=== PATIENT | male | born 1960 | race Caucasian/White ===

== ENCOUNTER → 2024-10-04 14:56 | Outpatient (BNVA) | payer MEDICARE, SELFPAY | PROVIDERS: PCP Nurse Practitioner Family; Visit Provider Nurse Practitioner Family | DX: R68.89 Other general symptoms and signs (principal); Z20.822 Contact with and (suspected) exposure to COVID-19 | CPT/HCPCS: 87400; 87426 ==

== ENCOUNTER 2024-10-29 14:04 | Outpatient (CLI) | payer MEDICARE, SELFPAY | END 2024-10-29 14:05 | disposition home or self-care (01) | LOC: SLEEP 14:08 | PROVIDERS: PCP Family Medicine; Visit Provider Family Medicine | DX: G47.33 Obstructive sleep apnea (adult) (pediatric) (principal); G47.36 Sleep related hypoventilation in conditions classified elsewhere | CPT/HCPCS: G0399 ==

== ENCOUNTER 2024-12-24 19:50 | Emergency (ER) | payer MEDICARE, SELFPAY ==
[2024-12-24 20:35] VITALS: BP 143/64; PULSE 65; RESP 17; TEMP 36.8; O2SAT 98; BMI 26.2
--- NOTE | 2024-12-24 20:39 | ECG_ITS ---
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
[2024-12-24 21:10] LABS: Basophils % 0.4 %; Eosinophils # 0.3 10^3/uL (0.0-0.8); Eosinophils % 3.9 %; Hematocrit 29.8 % (37-53); Lymphocytes # 0.9 10^3/uL (0.8-4.8); Lymphocytes % 12.8 %; Mean Corpuscular HGB Conc 30.2 g/dL (30-55); Mean Corpuscular Volume 89.5 fl (82-101); Mean Platelet Volume 10.7 fL (7.4-10.4); Monocytes # 0.7 10^3/uL (0.2-0.9); Monocytes % 9.4 %; Neutrophils % 73.2 %; Nucleated Red Blood Cells % 0 %; Platelet Count 186 10^3/cmm (157-399); Red Blood Count 3.33 10^6/uL (3.85-5.65); Red Cell Distribution Width 14.3 % (12.1-15.1); White Blood Count 7.11 10^3/uL (3.29-11.43)
[2024-12-24 21:38] LABS: Alanine Aminotransferase 14 U/L (0-41); Albumin Level 3.7 g/dL (3.5-5.2); Alkaline Phosphatase 123 U/L (40-130); Anion Gap 19.6 (5-19); Aspartate Amino Transferase 15 U/L (0-40); Blood Urea Nitrogen 51 mg/dL (8-23); Calcium 8.7 mg/dL (8.5-10.5); Carbon Dioxide 23 mmol/L (22-29); Chloride 100 mmol/L (98-107); Creatinine Clr Calc Pharmacy 22.5915; Globulin 2.9 g/dL (1.3-4.6); Glomerular Filtration Rate 14.3 mL/min (90-130); Glucose 97 mg/dL (65-115); NT Pro B Type Natriuretic Pept 5929 pg/mL (0-125); Osmolality Calculated 300 mOsm/kg (285-295); Potassium 4.6 mmol/L (3.5-5.1); Sodium 138 mmol/L (136-145); Total Bilirubin 0.2 mg/dL (0.15-1.2); Total Protein 6.6 g/dL (6.6-8.7)
--- NOTE | 2024-12-24 23:25 | CTR_ITS ---
PROCEDURE INFORMATION: Exam: CT Chest Without Contrast; Diagnostic Exam date and time: 12/24/2024 11:53 PM Age: 64 years old Clinical indication: Abdominal tenderness and bloating; Shortness of breath; Additional info: Abdominal swelling, shortness of breath TECHNIQUE: Imaging protocol: Diagnostic computed tomography of the chest without contrast. Radiation optimization: All CT scans at this facility use at least one of these dose optimization techniques: automated exposure control; mA and/or kV adjustment per patient size (includes targeted exams where dose is matched to clinical indication); or iterative reconstruction. COMPARISON: No relevant prior studies available. RADIATION DOSE METRICS: Total DLP (mGy-cm): 0.01 FINDINGS: Thyroid: The visualized thyroid gland is unremarkable. Trachea: The central airways are patent. Lungs: Scattered calcified granulomas in both lungs. No focal consolidation. Background of mild centrilobular emphysema. Pleural spaces: No significant pleural effusion. No pneumothorax. Heart: The heart is enlarged. No pericardial effusion. Coronary arteries: Severe coronary artery calcifications and/or stents. Lymph nodes: Nonspecific scattered prominent mediastinal lymph nodes measuring up to 1.0 cm in short axis anterior to the right mainstem bronchus, possibly reactive. Vasculature: The aorta demonstrates mild atherosclerotic calcification. The aorta is normal in caliber. No aneurysm. Bones/joints: The spine demonstrates moderate degenerative changes at multiple levels. There are diffuse flowing bridging osteophytes, consistent with diffuse idiopathic skeletal hyperostosis (DISH). Soft tissues: Soft tissues are unremarkable as visualized. COMMENTS: The presence of pulmonary emphysema on CT is an independent risk factor for lung cancer. In the absence of a history or active diagnosis of lung cancer, it is recommended that this patient with emphysema be evaluated for enrollment in a low dose CT lung cancer screening program. PROCEDURE INFORMATION: Exam: CT Abdomen And Pelvis Without Contrast Exam date and time: 12/24/2024 11:53 PM Age: 64 years old Clinical indication: Abdominal tenderness and bloating; Shortness of breath; Additional info: Abdominal swelling, shortness of breath TECHNIQUE: Imaging protocol: Computed tomography of the abdomen and pelvis without contrast. Radiation optimization: All CT scans at this facility use at least one of these dose optimization techniques: automated exposure control; mA and/or kV adjustment per patient size (includes targeted exams where dose is matched to clinical indication); or iterative reconstruction. COMPARISON: No relevant prior studies available. RADIATION DOSE METRICS: Total DLP (mGy-cm): 982.47 FINDINGS: Liver: The liver is unremarkable. Gallbladder and biliary ducts: The gallbladder is unremarkable. No biliary dilation. Pancreas: The pancreas is unremarkable. Spleen: The spleen is unremarkable. Adrenal glands: The adrenal glands are unremarkable. Kidneys and ureters: Punctate bilateral nonobstructive renal stones. No hydronephrosis. Subcentimeter simple and hemorrhagic cysts within the left kidney. Stomach and bowel: Colonic diverticulosis without evidence of diverticulitis. Moderate colonic stool burden. Appendix: A normal appendix is identified. Intraperitoneal space: No significant peritoneal free fluid. No free peritoneal air. Vasculature: The vasculature demonstrates diffuse moderate atherosclerotic calcification. No aneurysm. Lymph nodes: No enlarged lymph nodes by size criteria. Urinary bladder: The bladder is unremarkable. Reproductive: Visualized portions of the male reproductive tract are unremarkable, though routine CT is limited in this regard. Bones/joints: The lumbar spine demonstrates marked degenerative changes at multiple levels. Soft tissues: Soft tissues are unremarkable as visualized. CT/[place] [id number] IMPRESSION: 1. No acute findings. 2. Background of mild centrilobular emphysema. 3. Severe coronary artery calcifications and/or stents. IMPRESSION: 1. No acute findings. 2. Bilateral punctate nephrolithiasis. No hydronephrosis. 3. Colonic diverticulosis without evidence of diverticulitis. COMMENTS: Consistent with the [employer]'s Incidental Findings Committee white paper (J Am Almita Radiol 2018): Any incidental renal lesion less than 1 cm or classified as too small to characterize, or any incidental cystic renal lesion characterized as simple-appearing, is likely benign. No follow-up imaging is recommended for these lesions per consensus recommendations based on imaging criteria.
[2024-12-25] VITALS: RESP 18
--- NOTE | 2024-12-25 00:16 | W.ED.GENADLT ---
HPI - General Adult General: Chief complaint: General Medical Stated complaint: dr raymundo kidney failure CHF holding too much fluid Time Seen by Provider: 12/25/24 00:12 History of Present Illness: 64-year-old male with a history of chronic kidney disease who presents to the emergency room at the urging of his kidney doctor. He says he felt like he is retaining fluid. He feels like this is in his abdomen. However his abdomen is flat and soft. No pain. No nausea or vomiting. No lower extremity swelling. Related Data Home Medications ?Medication ?Instructions ?Recorded ?Confirmed amlodipine 10 mg tablet 10 mg PO DAILY 10/04/24 10/04/24 aspirin 81 mg tablet,delayed 81 mg PO DAILY 10/04/24 10/04/24 release (Adult Aspirin Regimen) atorvastatin 40 mg tablet 40 mg PO DAILY 10/04/24 10/04/24 bumetanide 2 mg tablet 2 mg PO BID 10/04/24 10/04/24 clonidine HCl 0.1 mg tablet 0.05 mg PO BID 10/04/24 10/04/24 clopidogrel 75 mg tablet 75 mg PO DAILY 10/04/24 10/04/24 dextromethorphan-guaifenesin 30 1 tab PO DAILY 10/04/24 10/04/24 mg-600 mg tablet extended [id number] hr ferrous sulfate 325 mg (65 mg 325 mg PO DAILY 10/04/24 10/04/24 iron) tablet hydralazine 100 mg tablet 100 mg PO BID 10/04/24 10/04/24 isosorbide mononitrate 60 mg 60 mg PO DAILY 10/04/24 10/04/24 tablet,extended release 24 hr nitroglycerin 0.4 mg sublingual 0.4 mg sublingual Q5M PRN 10/04/24 10/04/24 tablet pantoprazole 40 mg tablet,delayed 40 mg PO DAILY 10/04/24 10/04/24 release Previous Rx's ?Medication ?Instructions ?Recorded azithromycin 250 mg tablet See Rx Instructions PO .COMPLEX #6 10/04/24 tabs benzonatate 100 mg capsule 100 mg PO TID PRN cough #90 caps 10/04/24 prednisone 10 mg tablet 30 mg (3 x 10 mg) PO DAILY 3 days 10/04/24 #9 tabs Allergies Allergy/AdvReac Type Severity Reaction Status Date / Time Sulfa (Sulfonamide Allergy Intermediate Unknown Verified 10/04/24 14:49 Antibiotics) Review of Systems Narrative: Constitutional symptoms: Negative except as documented in HPI. Skin symptoms: Negative except as documented in HPI. Eye symptoms: Negative except as documented in HPI. ENMT symptoms: Negative except as documented in HPI. Respiratory symptoms: Negative except as documented in HPI. Cardiovascular symptoms: Negative except as documented in HPI. Gastrointestinal symptoms: Negative except as documented in HPI. Genitourinary symptoms: Negative except as documented in HPI. Musculoskeletal symptoms: Negative except as documented in HPI. Neurologic symptoms: Negative except as documented in HPI. Psychiatric symptoms: Negative except as documented in HPI. Endocrine symptoms: Negative except as documented in HPI. PFS ED PFSH: Social History Smoking and tobacco/nicotine status: current every day tobacco/nicotine user Physical Exam Narrative: EXAM NARRATIVE: General: Alert, no acute distress. Skin: Warm, dry. Head: Normocephalic, atraumatic. Neck: Supple, trachea midline. Eye: Extraocular movements are intact. Ears, nose, mouth and throat: mucosa moist. Cardiovascular: Regular, Normal peripheral perfusion. Respiratory: Lungs are clear to auscultation, respirations are non-labored, breath sounds are equal, Symmetrical chest wall expansion. Gastrointestinal: Soft, Nontender, Non distended Musculoskeletal: Normal ROM, no deformity. Neurological: Alert and oriented, No focal neurological deficit observed. Psychiatric: Cooperative, appropriate mood & affect. Course Vital Signs: Vital signs: Vital Signs Temperature 98.2 F 12/24/24 20:35 Pulse Rate 65 12/25/24 00:38 Respiratory Rate 18 12/25/24 00:38 Blood Pressure 156/69 12/25/24 00:38 Pulse Oximetry 97 12/25/24 00:38 Oxygen Delivery Me thod Room Air 12/24/24 20:35 MDM - General Adult Medical Decision Making Lab Review: Laboratory results were reviewed and interpreted by myself the emergency room physician. No leukocytosis. Hemoglobin is 9 which would be expected in this patient with chronic kidney disease. His BUN and creatinine are 51 and 4.2 potassium of 4.6. I have no comparisons. I reviewed the patient's medical record. CT of the abdomen pelvis shows no acute findings. See documented findings below. This was reviewed and interpreted by myself the emergency room physician. I also reviewed the radiology report. Assessment and plan: Chronic kidney disease - Discharged home - Discussed plan with patient. Answered any questions. - Evaluation and treatment of this problem were appropriate in the emergency setting. Lab Data 12/24/24 20:50 12/24/24 20:50 Radiology Impressions Chest/Abdomen/Pelvis CT 12/24/24 23:25 IMPRESSION: 1. No acute findings. 2. Background of mild centrilobular emphysema. 3. Severe coronary artery calcifications and/or stents. IMPRESSION: 1. No acute findings. 2. Bilateral punctate nephrolithiasis. No hydronephrosis. 3. Colonic diverticulosis without evidence of diverticulitis. COMMENTS: Consistent with the [employer]'s Incidental Findings Committee white paper (J Am Almita Radiol 2018): Any incidental renal lesion less than 1 cm or classified as too small to characterize, or any incidental cystic renal lesion characterized as simple-appearing, is likely benign. No follow-up imaging is recommended for these lesions per consensus recommendations based on imaging criteria. Laboratory Results WBC 7.11 10^3/uL (3.29-11.43) 12/24/24 20:50 RBC 3.33 10^6/uL (3.85-5.65) L 12/24/24 20:50 Hgb 9.00 g/dL (11.27-16.99) L 12/24/24 20:50 Hct 29.8 % (37-53) L 12/24/24 20:50 MCV 89.5 fl (82-101) 12/24/24 20:50 MCH 27.0 pg (27-33) 12/24/24 20:50 MCHC 30.2 g/dL (30-55) 12/24/24 20:50 RDW 14.3 % (12.1-15.1) 12/24/24 20:50 Plt Count 186 10^3/cmm (157-399) 12/24/24 20:50 MPV 10.7 fL (7.4-10.4) H 12/24/24 20:50 Neut % (Auto) 73.2 % 12/24/24 20:50 Lymph % (Auto) 12.8 % 12/24/24 20:50 [place] % (Auto) 9.4 % 12/24/24 20:50 Eos % (Auto) 3.9 % 12/24/24 20:50 Baso % (Auto) 0.4 % 12/24/24 20:50 Neut # (Auto) 5.20 10^3/uL (1.8-7.7) 12/24/24 20:50 Lymph # (Auto) 0.9 10^3/uL (0.8-4.8) 12/24/24 20:50 [place] # (Auto) 0.7 10^3/uL (0.2-0.9) 12/24/24 20:50 Eos # (Auto) 0.3 10^3/uL (0.0-0.8) 12/24/24 20:50 Baso # (Auto) 0.0 10^3/uL (0.0-0.1) 12/24/24 20:50 Nucleated RBC % (auto) 0 % 12/24/24 20:50 Nucleated RBCs # 0.0 /100WBC 12/24/24 20:50 Sodium 138 mmol/L (136-145) 12/24/24 20:50 Potassium 4.6 mmol/L (3.5-5.1) 12/24/24 20:50 Chloride 100 mmol/L (98-107) 12/24/24 20:50 Carbon Dioxide 23 mmol/L (22-29) 12/24/24 20:50 Anion Gap 19.6 (5-19) H 12/24/24 20:50 BUN 51 mg/dL (8-23) H 12/24/24 20:50 Creatinine 4.2 mg/dL (0.7-1.2) H 12/24/24 20:50 GFR Calculation 14.3 mL/min (90-130) L 12/24/24 20:50 Glucose 97 mg/dL (65-115) 12/24/24 20:50 Calculated Osmolality 300 mOsm/kg (285-295) H 12/24/24 20:50 Calcium 8.7 mg/dL (8.5-10.5) 12/24/24 20:50 Total Bilirubin 0.2 mg/dL (0.15-1.2) 12/24/24 20:50 AST 15 U/L (0-40) 12/24/24 20:50 ALT 14 U/L (0-41) 12/24/24 20:50 Alkaline Phosphatase 123 U/L (40-130) 12/24/24 20:50 NT-Pro-B Natriuret Pep 5929 pg/mL (0-125) H 12/24/24 20:50 Total Protein 6.6 g/dL (6.6-8.7) 12/24/24 20:50 Albumin 3.7 g/dL (3.5-5.2) 12/24/24 20:50 Globulin 2.9 g/dL (1.3-4.6) 12/24/24 20:50 All radiology interpretation(s) finalized by discharge Discharge Plan Discharge Patient Disposition: Home Clinical Impression: Chronic kidney disease, stage 4 (severe) Condition: Stable Prescriptions: No Action amlodipine 10 mg tablet 10 mg PO DAILY aspirin [Adult Aspirin Regimen] 81 mg tablet,delayed release (DR/EC) 81 mg PO DAILY atorvastatin 40 mg tablet 40 mg PO DAILY bumetanide 2 mg tablet 2 mg PO BID clonidine HCl 0.1 mg tablet 0.05 mg PO BID clopidogrel 75 mg tablet 75 mg PO DAILY dextromethorphan-guaifenesin 30-600 mg tablet extended release 12 hr 1 tab PO DAILY ferrous sulfate 325 mg (65 mg iron) tablet 325 mg PO DAILY hydralazine 100 mg tablet 100 mg PO BID isosorbide mononitrate 60 mg tablet extended release 24 hr 60 mg PO DAILY nitroglycerin 0.4 mg tablet, sublingual 0.4 mg sublingual Q5M PRN Rx Instructions: do not exceed 3 doses per episode pantoprazole 40 mg tablet,delayed release (DR/EC) 40 mg PO DAILY azithromycin 250 mg tablet See Rx Instructions PO .COMPLEX Qty: 6 0RF Rx Instructions: For 250 mg dose pack: take 500 mg today (day 1), then 250 mg for 4 days (days 2-5) PO prednisone 10 mg tablet 30 mg PO DAILY 3 Days Qty: 9 0RF benzonatate 100 mg capsule 100 mg PO TID PRN (Reason: cough) Qty: 90 0RF Discharge Orders: Discharge ED (Routine); Ordered 12/25/24 Ordered By: Hoda Hernandez Referrals: Bobby Bradley, [Primary Care Provider] - Discharge Diet: Advance as tolerated Discharge Activity: Increase activity as tolerated Patient Instructions: Chronic Kidney Disease (ED), Opioid Safety, Pain Management Activity Restrictions/Additional Instructions: Thank you for choosing [facility] for your healthcare needs today. Please realize this is an emergency room and that we are providing you with a medical screening exam and this may not be complete and all inclusive of all the testing and or work up that you may need to determine your ailment or severity of your illness. You have been screened and evaluated and felt safe for discharge. Health conditions do change or evolve sometimes and as such it is important that you follow up with your Primary Doctor to be re checked, 3-5 days is a general good time frame for follow up. You are always welcome to return to the ED for re assessment if your symptoms are worsening or you have new concerns Print Language: Indonesian Coding Level of Care Code ED Dough Mixing Machine Operator for Carolina Rea
[2024-12-25 00:38] VITALS: BP 156/69; PULSE 65; RESP 18; O2SAT 97
== END 2024-12-25 00:39 | disposition home or self-care (01) ==
PROVIDERS: Emergency Medicine; Emergency Provider Emergency Medicine; PCP Family Medicine
DX: N18.4 Chronic kidney disease, stage 4 (severe) (principal); Z79.82 Long term (current) use of aspirin; Z72.0 Tobacco use
CPT/HCPCS: 36415; 71250; 74176; 80053; 83880; 85025; 93005; 99284

== ENCOUNTER 2025-01-05 10:00 | Oncology outpatient (recurring) (ONCR) | payer MEDICARE, OTHER, SELFPAY ==
[2024-12-15] MEDS: DARBEPOETIN SUBCUT (09:43)
[2024-12-15 09:55] VITALS: BP 150/60; PULSE 59; RESP 16; TEMP 36.6; O2SAT 98
[2025-01-05 10:35] LABS: Basophils % 0.2 %; Eosinophils # 0.1 10^3/uL (0.0-0.8); Eosinophils % 3.4 %; Hematocrit 30.7 % (37-53); Lymphocytes # 0.9 10^3/uL (0.8-4.8); Lymphocytes % 20.6 %; Mean Corpuscular HGB Conc 31.9 g/dL (30-55); Mean Corpuscular Hemoglobin 27.7 pg (27-33); Mean Corpuscular Volume 86.7 fl (82-101); Monocytes # 0.4 10^3/uL (0.2-0.9); Neutrophils # 2.75 10^3/uL (1.8-7.7); Neutrophils % 66.8 %; Nucleated Red Blood Cells % 0 %; Platelet Count 162 10^3/cmm (157-399); Red Blood Count 3.54 10^6/uL (3.85-5.65); Red Cell Distribution Width 13.7 % (12.1-15.1); White Blood Count 4.12 10^3/uL (3.29-11.43)
== END 2025-01-09 23:59 | disposition home or self-care (01) ==
PROVIDERS: PCP Family Medicine; Visit Provider Nurse Practitioner Family
DX: Z53.9 Procedure and treatment not carried out, unspecified reason; N18.4 Chronic kidney disease, stage 4 (severe); D50.9 Iron deficiency anemia, unspecified
CPT/HCPCS: 36415; 85025; 96372; J0881

== ENCOUNTER 2025-01-19 14:12 | Oncology outpatient (recurring) (ONCR) | payer MEDICARE, OTHER, SELFPAY ==
[2025-01-19] MEDS: DARBEPOETIN SUBCUT (14:56)
== END 2025-02-09 23:59 | disposition home or self-care (01) ==
PROVIDERS: PCP Family Medicine; Visit Provider Nurse Practitioner Family
DX: N18.4 Chronic kidney disease, stage 4 (severe) (principal); Z79.899 Other long term (current) drug therapy
CPT/HCPCS: 96372; J0881

== ENCOUNTER 2025-02-10 14:05 | Oncology outpatient (recurring) (ONCR) | payer MEDICARE, OTHER, SELFPAY ==
[2025-02-10 14:30] LABS: Basophils # 0.1 10^3/uL (0.0-0.1); Basophils % 0.8 %; Eosinophils # 0.3 10^3/uL (0.0-0.8); Eosinophils % 3.4 %; Hematocrit 35.2 % (37-53); Lymphocytes % 13.7 %; Mean Corpuscular HGB Conc 31.3 g/dL (30-55); Mean Corpuscular Hemoglobin 26.2 pg (27-33); Mean Corpuscular Volume 83.8 fl (82-101); Mean Platelet Volume 10.5 fL (7.4-10.4); Monocytes # 0.5 10^3/uL (0.2-0.9); Monocytes % 7.1 %; Neutrophils # 5.45 10^3/uL (1.8-7.7); Neutrophils % 74.7 %; Nucleated Red Blood Cells % 0 %; Platelet Count 212 10^3/cmm (157-399); Red Cell Distribution Width 13.9 % (12.1-15.1)
[2025-02-10 14:43] LABS: Alanine Aminotransferase 6 U/L (0-41); Alkaline Phosphatase 104 U/L (40-130); Anion Gap 17.3 (5-19); Aspartate Amino Transferase 15 U/L (0-40); Blood Urea Nitrogen 72 mg/dL (8-23); Calcium 8.8 mg/dL (8.5-10.5); Carbon Dioxide 22 mmol/L (22-29); Chloride 100 mmol/L (98-107); Globulin 2.7 g/dL (1.3-4.6); Glomerular Filtration Rate 15.6 mL/min (90-130); Glucose 107 mg/dL (65-115); Osmolality Calculated 302 mOsm/kg (285-295); Potassium 4.3 mmol/L (3.5-5.1); Sodium 135 mmol/L (136-145); Total Bilirubin 0.2 mg/dL (0.15-1.2); Total Protein 6.7 g/dL (6.6-8.7)
== END 2025-03-11 23:59 | disposition home or self-care (01) ==
LOC: ONCMED 14:06
PROVIDERS: PCP Family Medicine; Visit Provider Nurse Practitioner Family
DX: N18.4 Chronic kidney disease, stage 4 (severe) (principal)
CPT/HCPCS: 36415; 80053; 85025

== ENCOUNTER 2025-03-03 12:39 | Outpatient (CLI) | payer MEDICARE, OTHER, SELFPAY ==
[2025-03-03 13:51] LABS: Basophils % 0.3 %; Eosinophils # 0.3 10^3/uL (0.0-0.8); Eosinophils % 4.1 %; Hematocrit 31.1 % (37-53); Lymphocytes % 13.6 %; Mean Corpuscular HGB Conc 31.2 g/dL (30-55); Mean Corpuscular Hemoglobin 26.6 pg (27-33); Mean Corpuscular Volume 85.4 fl (82-101); Mean Platelet Volume 11.6 fL (7.4-10.4); Monocytes # 0.5 10^3/uL (0.2-0.9); Monocytes % 7.2 %; Neutrophils # 5.42 10^3/uL (1.8-7.7); Neutrophils % 74.5 %; Nucleated Red Blood Cells % 0 %; Platelet Count 164 10^3/cmm (157-399); Red Blood Count 3.64 10^6/uL (3.85-5.65); Red Cell Distribution Width 13.7 % (12.1-15.1); White Blood Count 7.27 10^3/uL (3.29-11.43)
== END 2025-03-03 12:40 | disposition home or self-care (01) ==
PROVIDERS: PCP Family Medicine; Visit Provider Nurse Practitioner Family
DX: D50.9 Iron deficiency anemia, unspecified (principal); D64.9 Anemia, unspecified
CPT/HCPCS: 36415; 85025

== ENCOUNTER 2025-04-09 13:17 | Oncology outpatient (recurring) (ONCR) | payer MEDICARE, OTHER, SELFPAY ==
[2025-04-09] MEDS: DARBEPOETIN 200 MCG SUBCUT (14:12)
== END 2025-04-11 23:59 | disposition home or self-care (01) ==
PROVIDERS: PCP Family Medicine; Visit Provider Nurse Practitioner Family
DX: N18.4 Chronic kidney disease, stage 4 (severe) (principal); Z79.899 Other long term (current) drug therapy
CPT/HCPCS: 96372; J0881

== ENCOUNTER 2025-04-30 11:46 | Oncology outpatient (recurring) (ONCR) | payer MEDICARE, OTHER, SELFPAY ==
[2025-04-30 12:36] LABS: Basophils % 0.6 %; Eosinophils # 0.2 10^3/uL (0.0-0.8); Eosinophils % 3.7 %; Hematocrit 29.9 % (37-53); Lymphocytes # 0.9 10^3/uL (0.8-4.8); Lymphocytes % 14.7 %; Mean Corpuscular HGB Conc 31.4 g/dL (30-55); Mean Corpuscular Hemoglobin 26.4 pg (27-33); Mean Platelet Volume 10.1 fL (7.4-10.4); Monocytes # 0.5 10^3/uL (0.2-0.9); Monocytes % 7.9 %; Neutrophils % 72.9 %; Nucleated Red Blood Cells % 0 %; Platelet Count 163 10^3/cmm (157-399); Red Blood Count 3.56 10^6/uL (3.85-5.65); Red Cell Distribution Width 13.8 % (12.1-15.1); White Blood Count 6.18 10^3/uL (3.29-11.43)
[2025-04-30 13:04] LABS: Alanine Aminotransferase 16 U/L (0-41); Albumin Level 3.7 g/dL (3.5-5.2); Alkaline Phosphatase 114 U/L (40-130); Anion Gap 16.3 (5-19); Aspartate Amino Transferase 13 U/L (0-40); Blood Urea Nitrogen 63 mg/dL (8-23); Calcium 8.9 mg/dL (8.5-10.5); Carbon Dioxide 25 mmol/L (22-29); Chloride 102 mmol/L (98-107); Globulin 2.9 g/dL (1.3-4.6); Glomerular Filtration Rate 12.9 mL/min (90-130); Glucose 105 mg/dL (65-115); Magnesium 2.1 mg/dL (1.7-2.3); NT Pro B Type Natriuretic Pept 4103 pg/mL (0-125); Osmolality Calculated 306 mOsm/kg (285-295); Potassium 4.3 mmol/L (3.5-5.1); Sodium 139 mmol/L (136-145); Total Bilirubin 0.4 mg/dL (0.15-1.2); Total Protein 6.6 g/dL (6.6-8.7)
== END 2025-05-11 23:59 | disposition home or self-care (01) ==
PROVIDERS: PCP Family Medicine; Visit Provider Nurse Practitioner Family
DX: N18.4 Chronic kidney disease, stage 4 (severe) (principal); I50.30 Unspecified diastolic (congestive) heart failure; Z01.818 Encounter for other preprocedural examination
CPT/HCPCS: 36415; 80048; 80053; 83735; 83880; 85025

== ENCOUNTER 2025-06-10 10:08 | Oncology outpatient (recurring) (ONCR) | payer MEDICARE, OTHER, SELFPAY ==
[2025-05-20] MEDS: darbepoetin 60 mcg/0.3 mL INJ 200 MCG SUBCUT (11:09)
[2025-06-10 10:18] LABS: Hematocrit 31.8 % (37-53); Hemoglobin 10.10 g/dL (11.27-16.99); Mean Corpuscular HGB Conc 31.8 g/dL (30-55); Mean Corpuscular Hemoglobin 27.0 pg (27-33); Mean Corpuscular Volume 85.0 fl (82-101); Nucleated Red Blood Cells % 0 %; Platelet Count 198 10^3/cmm (157-399); Red Blood Count 3.74 10^6/uL (3.85-5.65); White Blood Count 6.78 10^3/uL (3.29-11.43)
== END 2025-06-11 23:59 | disposition home or self-care (01) ==
PROVIDERS: Registered Nurse; PCP Family Medicine; Visit Provider Nurse Practitioner Family
DX: Z53.9 Procedure and treatment not carried out, unspecified reason; D50.9 Iron deficiency anemia, unspecified; N18.5 Chronic kidney disease, stage 5
CPT/HCPCS: 36415; 85025; 96372; J0881

== ENCOUNTER 2025-07-08 10:30 | Oncology outpatient (recurring) (ONCR) | payer MEDICARE, OTHER, SELFPAY ==
[2025-06-12] MEDS: DARBEPOETIN SUBCUT (10:47)
[2025-07-03 09:43] LABS: Hematocrit 33.0 % (37-53); Hemoglobin 10.20 g/dL (11.27-16.99); Mean Corpuscular HGB Conc 30.9 g/dL (30-55); Mean Corpuscular Hemoglobin 26.5 pg (27-33); Mean Corpuscular Volume 85.7 fl (82-101); Nucleated Red Blood Cells % 0 %; Platelet Count 146 10^3/cmm (157-399); Red Blood Count 3.85 10^6/uL (3.85-5.65); White Blood Count 6.04 10^3/uL (3.29-11.43)
== END 2025-07-12 23:59 | disposition home or self-care (01) ==
PROVIDERS: PCP Family Medicine; Visit Provider Nurse Practitioner Family
DX: Z53.9 Procedure and treatment not carried out, unspecified reason (principal)
CPT/HCPCS: 36415; 85025; 96372; J0881

== ENCOUNTER 2025-08-10 10:06 | Oncology outpatient (recurring) (ONCR) | payer MEDICARE, OTHER, SELFPAY ==
[2025-07-20] MEDS: DARBEPOETIN SUBCUT (10:40)
[2025-08-10 10:30] LABS: Hematocrit 32.8 % (37-53); Hemoglobin 10.30 g/dL (11.27-16.99); Mean Corpuscular HGB Conc 31.4 g/dL (30-55); Mean Corpuscular Hemoglobin 26.9 pg (27-33); Mean Corpuscular Volume 85.6 fl (82-101); Nucleated Red Blood Cells % 0 %; Platelet Count 163 10^3/cmm (157-399); Red Blood Count 3.83 10^6/uL (3.85-5.65); White Blood Count 6.15 10^3/uL (3.29-11.43)
== END 2025-08-11 23:59 | disposition home or self-care (01) ==
PROVIDERS: PCP Family Medicine; Visit Provider Nurse Practitioner Family
DX: N18.4 Chronic kidney disease, stage 4 (severe); Z53.9 Procedure and treatment not carried out, unspecified reason
CPT/HCPCS: 36415; 85025; 96372; J0881

== ENCOUNTER 2025-08-31 12:00 | Oncology outpatient (recurring) (ONCR) | payer MEDICARE, OTHER, SELFPAY ==
[2025-08-24] MEDS: DARBEPOETIN SUBCUT (13:04)
--- NOTE | 2025-08-31 12:15 | PC.NURSE ---
Pt arrived as scheduled but is not due to have labs drawn again for Aranesp till 09/14. Pt was scheduled wrong. $10 gas card given to pt as he lives in [place]/
== END 2025-09-11 23:59 | disposition home or self-care (01) ==
PROVIDERS: PCP Family Medicine; Visit Provider Nurse Practitioner Family
DX: Z53.9 Procedure and treatment not carried out, unspecified reason
CPT/HCPCS: 96372; J0881

== ENCOUNTER 2025-09-24 14:06 | Oncology outpatient (recurring) (ONCR) | payer MEDICARE, OTHER, SELFPAY ==
[2025-09-14 10:45] LABS: Hematocrit 31.9 % (37-53); Hemoglobin 9.80 g/dL (11.27-16.99); Mean Corpuscular HGB Conc 30.7 g/dL (30-55); Mean Corpuscular Hemoglobin 26.1 pg (27-33); Mean Corpuscular Volume 85.1 fl (82-101); Nucleated Red Blood Cells % 0 %; Platelet Count 174 10^3/cmm (157-399); Red Blood Count 3.75 10^6/uL (3.85-5.65); White Blood Count 6.34 10^3/uL (3.29-11.43)
[2025-09-24] MEDS: DARBEPOETIN SUBCUT (14:24)
== END 2025-10-11 23:59 | disposition home or self-care (01) ==
PROVIDERS: PCP Family Medicine; Visit Provider Nurse Practitioner Family
DX: N18.4 Chronic kidney disease, stage 4 (severe); Z79.899 Other long term (current) drug therapy; Z53.9 Procedure and treatment not carried out, unspecified reason
CPT/HCPCS: 36415; 85025; 96372; J0881

== ENCOUNTER 2025-11-04 10:00 | Oncology outpatient (recurring) (ONCR) | payer MEDICARE, OTHER, SELFPAY ==
[2025-10-15 11:22] LABS: Hematocrit 31.3 % (37-53); Hemoglobin 9.60 g/dL (11.27-16.99); Mean Corpuscular HGB Conc 30.7 g/dL (30-55); Mean Corpuscular Hemoglobin 25.8 pg (27-33); Mean Corpuscular Volume 84.1 fl (82-101); Nucleated Red Blood Cells % 0 %; Platelet Count 145 10^3/cmm (157-399); Red Blood Count 3.72 10^6/uL (3.85-5.65); White Blood Count 6.76 10^3/uL (3.29-11.43)
[2025-11-04] MEDS: DARBEPOETIN SUBCUT (10:30)
== END 2025-11-11 23:59 | disposition home or self-care (01) ==
PROVIDERS: PCP Family Medicine; Visit Provider Nurse Practitioner Family
DX: Z53.9 Procedure and treatment not carried out, unspecified reason; N18.5 Chronic kidney disease, stage 5; D63.1 Anemia in chronic kidney disease; D50.9 Iron deficiency anemia, unspecified
CPT/HCPCS: 36415; 85025; 96372; J0881